=== PATIENT | female | born 2000 | race Caucasian/White ===

== ENCOUNTER → 2019-12-14 | Outpatient (CLI) | payer BC ==
[~2019-12-14] MED LIST: AMOX50SU PO; CODACEE120 PO; ESCI10 PO; OFLO.3OTSO AU; QUET25 PO; SERT50 PO; TYLENOL
[2019-12-14 14:03] LABS: BASOPHILS ABSOLUTE AUTO 0.05 K/mm3 (0.00-0.23); BASOPHILS PERCENT AUTO 1 % (0-2); EOSINOPHILS ABSOLUTE AUTO 0.04 K/mm3 (0.00-0.68); EOSINOPHILS PERCENT AUTO 1 % (0-6); Hematocrit 38.3 % (33.0-51.0); Hemoglobin 12.6 g/dL (11.5-16.0); IMMATURE GRAN ABSOLUTE AUTO 0.01 K/mm3 (0.00-0.10); IMMATURE GRAN PERCENT AUTO 0 % (0-1); LYMPHOCYTES ABSOLUTE AUTO 2.18 K/mm3 (0.84-5.20); LYMPHOCYTES PERCENT AUTO 27 % (21-46); MONOCYTES ABSOLUTE AUTO 0.48 K/mm3 (0.16-1.47); MONOCYTES PERCENT AUTO 6 % (4-13); Mean Corpuscular HGB 28.2 pg (26.0-34.0); Mean Corpuscular HGB Conc 32.9 g/dL (31.5-36.5); Mean Corpuscular Volume 86 fL (80-100); Mean Platelet Volume 11.1 fL (9.1-12.4); NEUTROPHILS PERCENT AUTO 66 % (41-73); Platelet Count 303 K/mm3 (150-400); RDW Coefficient Variation 13.2 % (11.7-14.2); RDW Standard Deviation 40.6 fL (35.1-46.3); Red Blood Cell Count 4.47 M/mm3 (3.80-5.20); White Blood Cell Count 8.06 K/mm3 (4.00-11.30)
[2019-12-14 14:23] LABS: Alanine Aminotransfer (ALT/SGP 18 U/L (12-78); Albumin, Blood 3.8 g/dL (3.4-5.0); Alk Phos 86 U/L (50-136); Anion Gap 5 mmol/L (6-16); Aspartate Aminotrans (AST/SGOT 17 U/L (12-37); Bilirubin, Total 0.7 mg/dL (0.1-1.0); Blood Urea Nitrogen 11 mg/dL (8-24); CO2, Blood 26 mmol/L (21-32); Calcium, Blood 8.9 mg/dL (8.5-10.1); Chloride, Blood 108 mmol/L (98-108); Creatinine, Blood 0.85 mg/dL (0.40-1.00); Globulin, Blood 3.9 g/dL (2.2-4.0); Glomerular Filtration Rate >60 (60-); Glucose, Blood 93 mg/dL (70-99); Potassium, Blood 3.9 mmol/L (3.5-5.5); Sodium, Blood 139 mmol/L (136-145); Total Protein, Blood 7.7 g/dL (6.4-8.2)
== END | disposition home or self-care (01) ==
LOC: LAB SHORT 13:52 → LAB 13:52
PROVIDERS: Physician Assistant
DX: R10.9 Unspecified abdominal pain (principal)
CPT/HCPCS: 80053; 83690; 85025

== ENCOUNTER 2019-12-21 11:42 | Emergency (ER) | payer BC ==
[~2019-12-21] VITALS: Ht 152.4 cm; Wt 68.3 kg
[2019-12-21] MEDS ORDERED: ZOFRAN4 MG PO (12:23)
[2019-12-21 13:30] LABS: Source, Urine Clean Catch
[2019-12-21 13:37] LABS: BASOPHILS ABSOLUTE AUTO 0.03 K/mm3 (0.00-0.23); BASOPHILS PERCENT AUTO 0 % (0-2); EOSINOPHILS ABSOLUTE AUTO 0.03 K/mm3 (0.00-0.68); EOSINOPHILS PERCENT AUTO 0 % (0-6); Hematocrit 40.5 % (33.0-51.0); Hemoglobin 13.3 g/dL (11.5-16.0); IMMATURE GRAN ABSOLUTE AUTO 0.02 K/mm3 (0.00-0.10); IMMATURE GRAN PERCENT AUTO 0 % (0-1); LYMPHOCYTES ABSOLUTE AUTO 2.12 K/mm3 (0.84-5.20); LYMPHOCYTES PERCENT AUTO 26 % (21-46); MONOCYTES PERCENT AUTO 5 % (4-13); Mean Corpuscular HGB 27.7 pg (26.0-34.0); Mean Corpuscular HGB Conc 32.8 g/dL (31.5-36.5); Mean Corpuscular Volume 84 fL (80-100); Mean Platelet Volume 11.3 fL (9.1-12.4); NEUTROPHILS ABSOLUTE AUTO 5.55 K/mm3 (1.96-9.15); NEUTROPHILS PERCENT AUTO 68 % (41-73); Platelet Count 280 K/mm3 (150-400); RDW Coefficient Variation 13.2 % (11.7-14.2); RDW Standard Deviation 40.9 fL (35.1-46.3); White Blood Cell Count 8.15 K/mm3 (4.00-11.30)
[2019-12-21 13:40] LABS: Bilirubin, Urine Neg (Neg); Blood, Urine 2+ (Neg); Glucose Qualitative, Urine Neg (Neg); Ketones, Urine 2+ (Neg); Leukocyte Esterase, Urine 2+ (Neg); Nitrite, Urine Neg (Neg); Protein, Urine 1+ (Neg); Urobilinogen, Urine NORM (Normal)
[2019-12-21 13:45] LABS: Appearance, Urine Cloudy (Clear); Color, Urine Yellow (P-Yellow)
[2019-12-21 13:47] LABS: Bacteria Many /hpf; Red Blood Cells, Urine 25-50 /hpf (0-2); Squamous Epithelial Cells Many /hpf (Few); White Blood Cells, Urine 25-50 /hpf (0-5)
[2019-12-21 13:56] LABS: Alanine Aminotransfer (ALT/SGP 20 U/L (12-78); Albumin, Blood 3.9 g/dL (3.4-5.0); Albumin/Globulin Ratio 0.9 (0.8-1.8); Alk Phos 83 U/L (50-136); Anion Gap 9 mmol/L (6-16); Aspartate Aminotrans (AST/SGOT 20 U/L (12-37); Bilirubin, Total 0.8 mg/dL (0.1-1.0); Blood Urea Nitrogen 10 mg/dL (8-24); CO2, Blood 22 mmol/L (21-32); Calcium, Blood 9.3 mg/dL (8.5-10.1); Chloride, Blood 106 mmol/L (98-108); Creatinine, Blood 0.91 mg/dL (0.40-1.00); Globulin, Blood 4.2 g/dL (2.2-4.0); Glomerular Filtration Rate >60 (60-); Glucose, Blood 82 mg/dL (70-99); Potassium, Blood 3.8 mmol/L (3.5-5.5); Sodium, Blood 137 mmol/L (136-145); Total Protein, Blood 8.1 g/dL (6.4-8.2)
== END 2019-12-21 14:52 | disposition home or self-care (01) ==
LOC: ER 11:42
PROVIDERS: Emergency Medicine
DX: J40 Bronchitis, not specified as acute or chronic (principal); R10.9 Unspecified abdominal pain; N39.0 Urinary tract infection, site not specified; Z91.030 Bee allergy status; Z79.899 Other long term (current) drug therapy
CPT/HCPCS: 36415; 71045; 74176; 80053; 81001; 81025; 83690; 85025; 85730; 87086; 96360; 99284-25; J7030

== ENCOUNTER → 2020-07-18 | Outpatient (CLI) | payer BC ==
[~2020-07-18] MED LIST changes: +ZOFRAN4 MG PO
[2020-07-19 10:26] LABS: Candida species (DNA Probe) Positive (NEGATIVE); G. vaginalis (DNA Probe) Negative (NEGATIVE); T. vaginalis (DNA Probe) Negative (NEGATIVE)
[2020-08-07 13:12] LABS: CHLAMYDIA TRACHOMATIS, NAA Negative (Negative)
== END | disposition home or self-care (01) ==
LOC: LAB 15:47 → LAB SHORT 15:47 → OLS 15:47
PROVIDERS: Advanced Practice Midwife
DX: Z01.419 Encounter for gynecological examination (general) (routine) without abnormal findings (principal); Z11.3 Encounter for screening for infections with a predominantly sexual mode of transmission; N76.0 Acute vaginitis
CPT/HCPCS: 87480; 87491; 87510; 87591; 87624; 87625; 87660; G0123

== ENCOUNTER → 2020-08-15 | Outpatient (CLI) | payer BC ==
[2020-08-16 10:00] LABS: Candida species (DNA Probe) Negative (NEGATIVE); G. vaginalis (DNA Probe) Positive (NEGATIVE); T. vaginalis (DNA Probe) Negative (NEGATIVE)
== END | disposition home or self-care (01) ==
LOC: LAB 10:10
PROVIDERS: Advanced Practice Midwife
DX: R10.2 Pelvic and perineal pain (principal)
CPT/HCPCS: 87480; 87510; 87660

== ENCOUNTER → 2020-12-25 | Outpatient (CLI) | payer BC ==
[2020-12-26 11:48] LABS: Candida species (DNA Probe) Positive (NEGATIVE); G. vaginalis (DNA Probe) Negative (NEGATIVE); T. vaginalis (DNA Probe) Negative (NEGATIVE)
== END ==
LOC: LAB SHORT 10:26
PROVIDERS: Family Medicine
DX: N89.8 Other specified noninflammatory disorders of vagina (principal)
CPT/HCPCS: 87480; 87510; 87660

== ENCOUNTER → 2021-07-02 | Outpatient (CLI) | payer BC | LOC: LAB 19:22 → LAB SHORT 19:22 | DX: R30.0 Dysuria (principal); R10.9 Unspecified abdominal pain | CPT/HCPCS: 87077; 87086; 87186 ==

== ENCOUNTER 2021-07-12 17:30 | Emergency (ER) | payer BC ==
[~2021-07-12] VITALS: Ht 149.9 cm; Wt 83.9 kg
== END 2021-07-12 20:37 | disposition home or self-care (01) ==
LOC: ER 17:30
DX: G43.909 Migraine, unspecified, not intractable, without status migrainosus (principal); Z88.6 Allergy status to analgesic agent; Z88.8 Allergy status to other drugs, medicaments and biological substances; Z91.030 Bee allergy status; Z79.899 Other long term (current) drug therapy
CPT/HCPCS: 96374; 96375; 99283-25; J0780; J1200; J1885; J7030

== ENCOUNTER → 2021-07-18 | Outpatient (CLI) | payer BC ==
[2021-07-19 10:29] LABS: Candida species (DNA Probe) Positive (NEGATIVE); G. vaginalis (DNA Probe) Positive (NEGATIVE); T. vaginalis (DNA Probe) Negative (NEGATIVE)
== END | disposition home or self-care (01) ==
LOC: LAB SHORT 15:23 → LAB 15:23
PROVIDERS: Advanced Practice Midwife
DX: Z01.419 Encounter for gynecological examination (general) (routine) without abnormal findings (principal); R20.8 Other disturbances of skin sensation
CPT/HCPCS: 87480; 87510; 87660; G0123

== ENCOUNTER 2022-01-26 11:36 | Emergency (ER) | payer OTHER, BC ==
[~2022-01-26] VITALS: Ht 152.4 cm; Wt 83.5 kg
[2022-01-26] MEDS ORDERED: Tessalon Perle100 MG PO (13:53)
[2022-01-26] MEDS ORDERED: DEXT30SU PO (13:53)
[2022-01-26] MEDS ORDERED: ZYRTEC10 M2 PO (13:53)
== END 2022-01-26 14:15 | disposition home or self-care (01) ==
LOC: ER 11:36
DX: R05.9 Cough, unspecified (principal); Z79.899 Other long term (current) drug therapy; Z88.8 Allergy status to other drugs, medicaments and biological substances; Z91.030 Bee allergy status
CPT/HCPCS: 71046

== ENCOUNTER → 2022-03-18 | Outpatient (CLI) | payer BC ==
[~2022-03-18] MED LIST changes: +DEXT30SU PO; +Tessalon Perle100 MG PO; +ZYRTEC10 M2 PO
== END ==
LOC: LAB SHORT 18:54 → LAB 18:54
DX: R30.0 Dysuria (principal); R31.9 Hematuria, unspecified
CPT/HCPCS: 87086

== ENCOUNTER 2023-05-12 13:12 | Emergency (ER) | payer BC, OTHER ==
[~2023-05-12] VITALS: Ht 154.9 cm; Wt 89.8 kg
[2023-05-12 14:02] LABS: Source, Urine Voided
[2023-05-12 14:06] LABS: BASOPHILS ABSOLUTE AUTO 0.09 K/mm3 (0.00-0.23); BASOPHILS PERCENT AUTO 1 % (0-2); EOSINOPHILS ABSOLUTE AUTO 0.27 K/mm3 (0.00-0.68); EOSINOPHILS PERCENT AUTO 2 % (0-6); Hemoglobin 12.8 g/dL (11.5-16.0); IMMATURE GRAN ABSOLUTE AUTO 0.06 K/mm3 (0.00-0.10); IMMATURE GRAN PERCENT AUTO 0 % (0-1); LYMPHOCYTES ABSOLUTE AUTO 3.66 K/mm3 (0.84-5.20); LYMPHOCYTES PERCENT AUTO 23 % (21-46); MONOCYTES ABSOLUTE AUTO 0.57 K/mm3 (0.16-1.47); MONOCYTES PERCENT AUTO 4 % (4-13); Mean Corpuscular Volume 81 fL (80-100); Mean Platelet Volume 10.6 fL (9.1-12.4); NEUTROPHILS ABSOLUTE AUTO 11.04 K/mm3 (1.96-9.15); NEUTROPHILS PERCENT AUTO 70 % (41-73); Platelet Count 393 K/mm3 (150-400); RDW Coefficient Variation 14.8 % (11.7-14.2); RDW Standard Deviation 43.4 fL (35.1-46.3); Red Blood Cell Count 4.93 M/mm3 (3.80-5.20); White Blood Cell Count 15.69 K/mm3 (4.00-11.30)
[2023-05-12 14:18] LABS: Appearance, Urine Cloudy (Clear); Bilirubin, Urine Neg (Neg); Blood, Urine 5+ (Neg); Color, Urine Yellow (P-Yellow); Glucose Qualitative, Urine Neg (Neg); Ketones, Urine Neg (Neg); Leukocyte Esterase, Urine 3+ (Neg); Nitrite, Urine Neg (Neg); Protein, Urine 3+ (Neg); Specific Gravity, Urine 1.025 (1.003-1.022); Urobilinogen, Urine NORM (Normal)
[2023-05-12 14:19] LABS: Albumin, Blood 4.1 g/dL (3.4-5.0); Albumin/Globulin Ratio 1.1 (0.8-1.8); Bilirubin, Total 0.4 mg/dL (0.1-1.0); Bun/Creatinine Ratio 10.5 (12.0-20.0); Calcium, Blood 9.4 mg/dL (8.5-10.1); Creatinine, Blood 0.76 mg/dL (0.40-1.00); Globulin, Blood 3.8 g/dL (2.2-4.0); Potassium, Blood 3.9 mmol/L (3.5-5.5); Total Protein, Blood 7.9 g/dL (6.4-8.2)
[2023-05-12 15:14] LABS: Bacteria Many /hpf; Red Blood Cells, Urine TNTC /hpf (0-2); Squamous Epithelial Cells Few /hpf (Few); White Blood Cells, Urine TNTC /hpf (0-5)
[2023-05-12 17:15] VITALS: BP 110/62
[2023-05-12] MEDS ORDERED: CEPH500 PO (17:47)
[2023-05-12] MEDS ORDERED: BACTRIM DS TAB1 EAC1 PO (17:47)
[2023-05-12] MEDS ORDERED: Pyridium200 MG PO (17:47)
== END 2023-05-12 17:52 | disposition home or self-care (01) ==
LOC: ER 13:12
PROVIDERS: Student in an Organized Health Care Education/Training Program
DX: N39.0 Urinary tract infection, site not specified (principal); L03.316 Cellulitis of umbilicus; Z91.018 Allergy to other foods; Z91.030 Bee allergy status; Z88.8 Allergy status to other drugs, medicaments and biological substances
CPT/HCPCS: 74176; 80053; 81001; 81025; 85025; 87077; 87086; 87186; 96361; 96374; 99284-25; A9270; J1885; J7030

== ENCOUNTER 2024-01-16 17:47 | Observation (INO) | payer BC, OTHER ==
[~2024-01-16] VITALS: Ht 152.4 cm; Wt 94.9 kg
[2024-01-18 07:43] VITALS: BP 83/54
== END 2024-01-18 10:30 | disposition home or self-care (01) ==
LOC: ER 17:47 → SURS 17:48 → ER 17:48 → SURS 17:48 → ER 01-17 00:58 → SURS 01-17 01:29
PROVIDERS: ADMIT Surgery
PROC: 8E0W4CZ Robotic Assisted Procedure of Trunk Region, Percutaneous Endoscopic Approach (ICD-10-PCS; principal; 2024-01-17)
PROC: 0FT44ZZ Resection of Gallbladder, Percutaneous Endoscopic Approach (ICD-10-PCS; principal; 2024-01-17)
DX: K81.0 Acute cholecystitis (principal); K81.1 Chronic cholecystitis; Z88.8 Allergy status to other drugs, medicaments and biological substances

== ENCOUNTER → 2024-02-24 | Outpatient (CLI) | payer BC, OTHER ==
[~2024-02-24] MED LIST changes: +BACTRIM DS TAB1 EAC1 PO; +CEPH500 PO; +OXYC5 PO; +Pyridium200 MG PO
[2024-02-24 17:18] LABS: Source, Urine Clean Catch
[2024-02-24 20:16] LABS: Appearance, Urine Turbid (Clear); Bilirubin, Urine Neg (Neg); Blood, Urine 2+ (Neg); Color, Urine Yellow (P-Yellow); Glucose Qualitative, Urine Neg (Neg); Ketones, Urine 1+ (Neg); Leukocyte Esterase, Urine 3+ (Neg); Nitrite, Urine Neg (Neg); Protein, Urine 1+ (Neg); Urobilinogen, Urine NORM (Normal)
[2024-02-24 20:33] LABS: Amorphous Heavy (0-Heavy); Calcium Oxalate Crystals Mod /hpf
[2024-02-24 20:34] LABS: Bacteria Mod /hpf; Red Blood Cells, Urine 0-2 /hpf (0-2); Squamous Epithelial Cells Few /hpf (Few)
== END ==
LOC: LAB 17:16 → LAB SHORT 17:16
PROVIDERS: Advanced Practice Midwife
DX: R31.9 Hematuria, unspecified (principal)
CPT/HCPCS: 81001; 87086

== ENCOUNTER → 2024-03-04 | Outpatient (CLI) | payer BC, OTHER ==
[2024-03-04 15:14] LABS: Bacterial Vaginosis PCR Positive (NEGATIVE); Candida Group, PCR NOT DETECTED (NOT DETECT); Candida glabrata-krusei, PCR DETECTED (NOT DETECT)
== END | disposition home or self-care (01) ==
LOC: LAB 12:59 → LAB SHORT 12:59
PROVIDERS: Advanced Practice Midwife
DX: N76.0 Acute vaginitis (principal)
CPT/HCPCS: 87481; 87661; 87801

== ENCOUNTER → 2024-05-02 | Outpatient (CLI) | payer BC, OTHER ==
[2024-05-02 12:35] LABS: Source, Urine Clean Catch
[2024-05-02 15:42] LABS: Appearance, Urine Cloudy (Clear); Bilirubin, Urine Neg (Neg); Blood, Urine 2+ (Neg); Color, Urine Yellow (P-Yellow); Glucose Qualitative, Urine Neg (Neg); Ketones, Urine 1+ (Neg); Leukocyte Esterase, Urine 3+ (Neg); Nitrite, Urine Neg (Neg); Protein, Urine 2+ (Neg); Urobilinogen, Urine 1+ (Normal)
[2024-05-02 15:54] LABS: Amorphous Heavy (0-Heavy)
[2024-05-02 15:57] LABS: Bacteria Many /hpf; Squamous Epithelial Cells Mod /hpf (Few); Transitional Epithelial Cells Rare /hpf (0-Rare)
[2024-05-02 16:37] LABS: Candida Group, PCR NOT DETECTED (NOT DETECT)
[2024-05-02 17:45] LABS: Bacterial Vaginosis PCR Positive (NEGATIVE); Candida glabrata-krusei, PCR DETECTED (NOT DETECT)
== END | disposition home or self-care (01) ==
LOC: LAB 12:32 → LAB SHORT 12:32
PROVIDERS: Advanced Practice Midwife
DX: N39.3 Stress incontinence (female) (male) (principal); N76.0 Acute vaginitis
CPT/HCPCS: 81001; 87086; 87481; 87661; 87801

== ENCOUNTER → 2024-06-07 | Outpatient (CLI) | payer BC, OTHER ==
[2024-06-07 20:39] LABS: Bacterial Vaginosis PCR Negative (NEGATIVE); Candida glabrata-krusei, PCR NOT DETECTED (NOT DETECT)
[2024-06-07 20:55] LABS: Candida Group, PCR DETECTED (NOT DETECT)
== END | disposition home or self-care (01) ==
LOC: LAB SHORT 17:23 → LAB 17:23
PROVIDERS: Advanced Practice Midwife
DX: R10.2 Pelvic and perineal pain (principal)
CPT/HCPCS: 87481; 87661; 87801

== ENCOUNTER → 2024-07-05 | Outpatient (CLI) | payer BC, OTHER ==
[2024-07-05 16:53] LABS: Source, Urine Clean Catch
[2024-07-05 18:17] LABS: Appearance, Urine Cloudy (Clear); Bilirubin, Urine Neg (Neg); Blood, Urine Neg (Neg); Color, Urine Yellow (P-Yellow); Glucose Qualitative, Urine Neg (Neg); Ketones, Urine Neg (Neg); Leukocyte Esterase, Urine 2+ (Neg); Nitrite, Urine Neg (Neg); Protein, Urine 1+ (Neg); Urobilinogen, Urine NORM (Normal)
[2024-07-05 18:31] LABS: Bacteria Many /hpf; Red Blood Cells, Urine Not Seen /hpf (0-2); Squamous Epithelial Cells Many /hpf (Few)
== END | disposition home or self-care (01) ==
LOC: LAB SHORT 16:50 → LAB 16:50
PROVIDERS: Advanced Practice Midwife
DX: Z09 Encounter for follow-up examination after completed treatment for conditions other than malignant neoplasm (principal); Z87.440 Personal history of urinary (tract) infections
CPT/HCPCS: 81001; 87086

== ENCOUNTER → 2024-07-12 | Outpatient (CLI) | payer BC, OTHER | LOC: LAB SHORT 16:53 → LAB 16:53 | DX: O09.892 Supervision of other high risk pregnancies, second trimester (principal) | CPT/HCPCS: 87081; 87150 ==

== ENCOUNTER 2024-08-09 12:07 | Inpatient (IN) | payer BC, OTHER ==
[~2024-08-09] VITALS: Ht 149.9 cm; Wt 87.7 kg
[2024-08-09] VITALS (26 sets, daily range): BP systolic 98–149; BP diastolic 53–103
[2024-08-09] MEDS ORDERED: Calcium Carbonate 500 MG Tab Chew PO PRN (13:10)
[2024-08-09] MEDS ORDERED: Ondansetron HCl 2 MG / ML 2ML Vial IV PRN ×2 (13:10→13:30)
[2024-08-09] MEDS ORDERED: FentaNYL Citrate 50 MCG/ML 2 ML Injection IV PRN (13:10)
[2024-08-09] MEDS ORDERED: Lactated Ringer's 1,000 ML IV PRN (13:30)
[2024-08-09] MEDS ORDERED: Lactated Ringer's 1,000 ML IV SCH ×3 (13:30→14:15)
[2024-08-09] MEDS ORDERED: Tranexamic Acid 1,000 MG in NS 100 ML IV SCH (13:30)
[2024-08-09] MEDS ORDERED: Acetaminophen 500 MG Tab PO PRN (13:30)
[2024-08-09] MEDS ORDERED: Oxytocin 10 Unit / ML Vial IM PRN (13:30)
[2024-08-09] MEDS ORDERED: Methylergonovine Maleate 0.2MG / ML 1ML Amp IM PRN (13:30)
[2024-08-09] MEDS ORDERED: OXYTOCIN/RINGER'S LACTATE 500 ML IV PRN (13:30)
[2024-08-09] MEDS ORDERED: Misoprostol 200 MCG Tab PR PRN (13:30)
[2024-08-09] MEDS ORDERED: Misoprostol 200 MCG Tab BC PRN (13:30)
[2024-08-09] MEDS ORDERED: OXYTOCIN/RINGER'S LACTATE 500 ML IV SCH (13:30)
[2024-08-09] MEDS ORDERED: Carboprost Tromethamine 250 MCG/ML 1ML Amp IM PRN (13:30)
[2024-08-09] MEDS ORDERED: Calcium Carbonate 500 MG Tab Chew PO SCH (13:30)
[2024-08-09 13:42] LABS: BASOPHILS ABSOLUTE AUTO 0.04 K/mm3 (0.00-0.23); BASOPHILS PERCENT AUTO 0 % (0-2); EOSINOPHILS ABSOLUTE AUTO 0.08 K/mm3 (0.00-0.68); EOSINOPHILS PERCENT AUTO 1 % (0-6); Hematocrit 33.6 % (33.0-51.0); Hemoglobin 10.5 g/dL (11.5-16.0); IMMATURE GRAN ABSOLUTE AUTO 0.04 K/mm3 (0.00-0.10); IMMATURE GRAN PERCENT AUTO 0 % (0-1); LYMPHOCYTES ABSOLUTE AUTO 2.35 K/mm3 (0.84-5.20); LYMPHOCYTES PERCENT AUTO 25 % (21-46); MONOCYTES ABSOLUTE AUTO 0.52 K/mm3 (0.16-1.47); MONOCYTES PERCENT AUTO 6 % (4-13); Mean Corpuscular HGB 23.9 pg (26.0-34.0); Mean Corpuscular HGB Conc 31.3 g/dL (31.5-36.5); Mean Corpuscular Volume 76 fL (80-100); Mean Platelet Volume 11.9 fL (9.1-12.4); NEUTROPHILS ABSOLUTE AUTO 6.49 K/mm3 (1.96-9.15); NEUTROPHILS PERCENT AUTO 68 % (41-73); Platelet Count 269 K/mm3 (150-400); RDW Standard Deviation 48.8 fL (35.1-46.3); White Blood Cell Count 9.52 K/mm3 (4.00-11.30)
[2024-08-09] MEDS ORDERED: ePHEDrine Sulfate 50 MG/ML 1ML Injection XX PRN (14:15)
[2024-08-09] MEDS ORDERED: FentaNYL 2mcg/ml-Bup 0.1% Epd 250 ML EPI PRN (14:15)
[2024-08-10] VITALS (52 sets, daily range): BP systolic 75–126; BP diastolic 47–73
[2024-08-10 01:09] LABS: Bun/Creatinine Ratio 12.8 (12.0-20.0); Calcium, Blood 9.1 mg/dL (8.5-10.1); Creatinine, Blood 0.86 mg/dL (0.40-1.00)
[2024-08-10] MEDS ORDERED: Morphine Sulfate/PF 1 MG/ML 10MLVIAL ONE (01:28)
[2024-08-10] MEDS ORDERED: Azithromycin 500 MG in NS 250 ML IV SCH (01:35)
[2024-08-10] MEDS ORDERED: Citric Acid/Sodium Citrate 30 ML BTL PO PRN (01:35)
[2024-08-10] MEDS ORDERED: CeFAZolin Sodium 2,000 MG in NS 100 ML IV SCH (01:35)
[2024-08-10] MEDS ORDERED: Metoclopramide HCl 5MG / ML 2ML Vial IV PRN (01:40)
[2024-08-10] MEDS ORDERED: Tranexamic Acid 100 ML IV ONE (01:57)
[2024-08-10] MEDS ORDERED: Oxytocin 10 Unit / ML Vial ONE (02:32)
[2024-08-10] MEDS ORDERED: Phenylephrine HCl 100 MCG/ML-NS 10MLSYR (1MG/10ML) ONE (02:32)
[2024-08-10 02:59] LABS: PCO2 Cord - Arterial 63.2 mmHg (40-50); PO2 Cord - Arterial < 14.0 mmHg (16-20); pH Cord - Arterial 7.18 (7.28-7.35)
[2024-08-10 03:01] LABS: PCO2 Cord - Venous 45.5 mmHg (40-50); PO2 Cord - Venous < 14.0 mmHg (28-32)
[2024-08-10] MEDS ORDERED: Ondansetron HCl 2 MG / ML 2ML Vial ONE (03:23)
[2024-08-10] MEDS ORDERED: Ketorolac Tromethamine 30mg Vial ONE (03:31)
[2024-08-10] MEDS ORDERED: NS 500 ML IV SCH (04:05)
[2024-08-10] MEDS ORDERED: OxyCODONE HCL 5 MG TAB PO PRN ×2 (04:20→04:25)
[2024-08-10] MEDS ORDERED: OXYTOCIN/RINGER'S LACTATE 500 ML IV SCH ×2 (04:20→04:25)
[2024-08-10] MEDS ORDERED: Simethicone 80 MG Chew PO PRN (04:20)
[2024-08-10] MEDS ORDERED: Rho(D) Immune Globulin 300 MCG / SYR IM ONE (04:20)
[2024-08-10] MEDS ORDERED: Ondansetron HCl 2 MG / ML 2ML Vial IV PRN (04:25)
[2024-08-10] MEDS ORDERED: Misoprostol 200 MCG Tab PR PRN (04:25)
[2024-08-10] MEDS ORDERED: Lanolin Cream TOP PRN (04:25)
[2024-08-10] MEDS ORDERED: Promethazine HCl 25 MG Tab PO PRN (04:25)
[2024-08-10] MEDS ORDERED: Methylergonovine Maleate 0.2MG / ML 1ML Amp IM PRN (04:30)
[2024-08-10] MEDS ORDERED: DiphenhydrAMINE HCL 25 MG Cap PO PRN (04:30)
[2024-08-10] MEDS ORDERED: HYDROmorphone HCl/Pf 1MG SYR IV PRN (04:30)
[2024-08-10 04:45] LABS: Hematocrit 25.4 % (33.0-51.0); Mean Corpuscular HGB 23.8 pg (26.0-34.0); Mean Corpuscular HGB Conc 31.5 g/dL (31.5-36.5); Mean Corpuscular Volume 76 fL (80-100); Mean Platelet Volume 12.3 fL (9.1-12.4); Platelet Count 263 K/mm3 (150-400); RDW Coefficient Variation 17.8 % (11.7-14.2); RDW Standard Deviation 48.5 fL (35.1-46.3); Red Blood Cell Count 3.36 M/mm3 (3.80-5.20); White Blood Cell Count 17.98 K/mm3 (4.00-11.30)
[2024-08-10] MEDS ORDERED: Tranexamic Acid 100 ML IV PRN (04:55)
[2024-08-10] MEDS ORDERED: Ketorolac Tromethamine 30mg Vial IV SCH (05:00)
[2024-08-10 05:01] LABS: International Normalized Ratio 0.91; Prothrombin Time Results 9.8 Sec (9.7-11.5)
--- NOTE | 2024-08-10 07:20 | NUR ---
pt has 20cc in her soria right now, has til 0800 til it gets emptied, pt is pale, reports feels ok, no mcintosh, nausea,vomiting, or visual disturbanes, reports her pain is good, she is tired, she is very pale. biox 95-97%, bp is a little low, will coninue to monitor with q4hr vs
--- NOTE | 2024-08-10 08:30 | NUR ---
BP CONTINUES TO RUN LOW, PT DENIES ZAMORA, N/V, SEEING SPOTS, DENIES DIZZY OR LIGHTHEADED, DOES REPORT SWEATING OFF AND ON
[2024-08-10] MEDS ORDERED: Polyethylene Glycol 3350 17 gm PO SCH (09:00)
--- NOTE | 2024-08-10 09:06 | NUR ---
PAGE TO DR BARR TO CALL ABOUT PT VITAL SIGNS AND URINE OUTPUT
[2024-08-10 10:03] LABS: Hematocrit 27.3 % (33.0-51.0); Hemoglobin 8.7 g/dL (11.5-16.0); Mean Corpuscular HGB 24.6 pg (26.0-34.0); Mean Corpuscular HGB Conc 31.9 g/dL (31.5-36.5); Mean Corpuscular Volume 77 fL (80-100); Mean Platelet Volume 11.7 fL (9.1-12.4); Platelet Count 220 K/mm3 (150-400); RDW Coefficient Variation 17.2 % (11.7-14.2); RDW Standard Deviation 47.8 fL (35.1-46.3); Red Blood Cell Count 3.54 M/mm3 (3.80-5.20); White Blood Cell Count 17.37 K/mm3 (4.00-11.30)
[2024-08-10 10:18] LABS: International Normalized Ratio 0.92; Prothrombin Time Results 9.9 Sec (9.7-11.5)
[2024-08-10 10:23] LABS: Bun/Creatinine Ratio 15.2 (12.0-20.0); Calcium, Blood 8.4 mg/dL (8.5-10.1); Creatinine, Blood 0.86 mg/dL (0.40-1.00); Potassium, Blood 3.9 mmol/L (3.5-5.5)
--- NOTE | 2024-08-10 10:56 | NUR ---
PAGE TO DR BARR REQUARDING URINE OUPT AND BP, DR BARR ON HER WAY DOWN TO MAKE ROUNDS
--- NOTE | 2024-08-10 11:18 | NUR ---
DR BARR DID A QUICK CONSULT, WILL BE BACK, HAS TO DO A DELIVERY THEN WILL COME BACK WITH FURTHER ORDERS, CURRENT PLAN TO GIVE THE REST OF THE LR THAT IS IN THE PT ROOM
--- NOTE | 2024-08-10 11:24 | NUR ---
FLUID BOLUS STARTED WITH LR AT 250CC/HR, ABOUT 600CC LEFT IN BAG. THERE CURRENTLY IS LESS THAN 1CC IN THE PT CHAMPION
--- NOTE | 2024-08-10 12:18 | NUR ---
pt has been offered pain meds multiple times today and has declined needing them. will continue to offer her meds
--- NOTE | 2024-08-10 12:39 | NUR ---
pt urine output from 0500 this AM averages 25.3cc/hr, aware
--- NOTE | 2024-08-10 13:15 | NUR ---
dr colby at bedside for the 5cc of urine in the last 55 minutes, verbal order to increase LR to 500cc/hr when infused then run a bag of normal saline in at 500cc/hr
[2024-08-10] MEDS ORDERED: NS 1,000 ML IV SCH ×2 (13:20→18:10)
--- NOTE | 2024-08-10 15:30 | NUR ---
pt currently sleeping, had 85cc out of urine in 1 hr and 15 minutes, still lilly colored,
--- NOTE | 2024-08-10 15:41 | NUR ---
pt sl, iv fluids complete, will continue to monitor urine output
--- NOTE | 2024-08-10 17:26 | NUR ---
dr colby updated on output
--- NOTE | 2024-08-10 18:01 | NUR ---
new orders from dr colby, infuse 2 more bags of normal saline to increase urine output
--- NOTE | 2024-08-10 18:26 | NUR ---
FAMILY GOING TO GET PT SOME TACOS, SHE HASNT EATEN ANYTHING TODAY, JUST DRANK SOME MILK A COUPLE TIMES AND LITTLE WATER
--- NOTE | 2024-08-10 18:54 | NUR ---
EATING DINNER, FAMILY BROUGHT TACOS, PT IS SMILING AND LAUGHING EATING TACOS
[2024-08-11] VITALS (12 sets, daily range): BP systolic 85–129; BP diastolic 51–75
[2024-08-11] MEDS ORDERED: Ibuprofen 400 MG Tab PO SCH
[2024-08-11 05:47] LABS: BASOPHILS ABSOLUTE AUTO 0.03 K/mm3 (0.00-0.23); BASOPHILS PERCENT AUTO 0 % (0-2); EOSINOPHILS ABSOLUTE AUTO 0.05 K/mm3 (0.00-0.68); EOSINOPHILS PERCENT AUTO 0 % (0-6); Hemoglobin 7.2 g/dL (11.5-16.0); IMMATURE GRAN ABSOLUTE AUTO 0.11 K/mm3 (0.00-0.10); IMMATURE GRAN PERCENT AUTO 1 % (0-1); LYMPHOCYTES ABSOLUTE AUTO 2.13 K/mm3 (0.84-5.20); LYMPHOCYTES PERCENT AUTO 15 % (21-46); MONOCYTES ABSOLUTE AUTO 0.71 K/mm3 (0.16-1.47); MONOCYTES PERCENT AUTO 5 % (4-13); Mean Corpuscular HGB 24.7 pg (26.0-34.0); Mean Corpuscular HGB Conc 31.3 g/dL (31.5-36.5); Mean Corpuscular Volume 79 fL (80-100); Mean Platelet Volume 11.8 fL (9.1-12.4); NEUTROPHILS ABSOLUTE AUTO 11.21 K/mm3 (1.96-9.15); NEUTROPHILS PERCENT AUTO 79 % (41-73); Platelet Count 180 K/mm3 (150-400); RDW Coefficient Variation 17.5 % (11.7-14.2); RDW Standard Deviation 49.3 fL (35.1-46.3); Red Blood Cell Count 2.91 M/mm3 (3.80-5.20); White Blood Cell Count 14.24 K/mm3 (4.00-11.30)
[2024-08-11 05:54] LABS: Bun/Creatinine Ratio 11.4 (12.0-20.0); Calcium, Blood 8.2 mg/dL (8.5-10.1); Creatinine, Blood 0.79 mg/dL (0.40-1.00); Potassium, Blood 3.9 mmol/L (3.5-5.5)
[2024-08-11] MEDS ORDERED: Sod Ferric Gluc Complx/Sucrose 125 MG in NS 100 ML IV SCH (09:00)
[2024-08-12 00:18] VITALS: BP 119/70
[2024-08-12 04:04] VITALS: BP 109/62
[2024-08-12 09:03] VITALS: BP 114/71
== END 2024-08-12 11:10 | disposition home or self-care (01) | DRG 787 ==
LOC: OBS 12:07 → BC 12:18
PROVIDERS: Obstetrics & Gynecology; ADMIT Advanced Practice Midwife
PROC: 10D00Z1 Extraction of Products of Conception, Low, Open Approach (ICD-10-PCS; 2024-08-10)
PROC: 3E033VJ Introduction of Other Hormone into Peripheral Vein, Percutaneous Approach (ICD-10-PCS; 2024-08-10)
PROC: 00HU33Z Insertion of Infusion Device into Spinal Canal, Percutaneous Approach (ICD-10-PCS; 2024-08-10)
PROC: 3E0R3BZ Introduction of Anesthetic Agent into Spinal Canal, Percutaneous Approach (ICD-10-PCS; 2024-08-10)
PROC: 30233N1 Transfusion of Nonautologous Red Blood Cells into Peripheral Vein, Percutaneous Approach (ICD-10-PCS; principal; 2024-08-10 07:15)
DX: O48.0 Post-term pregnancy (principal); D62 Acute posthemorrhagic anemia; O72.1 Other immediate postpartum hemorrhage; O47.1 False labor at or after 37 completed weeks of gestation; O99.214 Obesity complicating childbirth; Z3A.40 40 weeks gestation of pregnancy; Z37.0 Single live birth; O24.420 Gestational diabetes mellitus in childbirth, diet controlled; O99.344 Other mental disorders complicating childbirth; F31.9 Bipolar disorder, unspecified; O99.513 Diseases of the respiratory system complicating pregnancy, third trimester; J45.909 Unspecified asthma, uncomplicated; O99.02 Anemia complicating childbirth; O76 Abnormality in fetal heart rate and rhythm complicating labor and delivery; Z90.49 Acquired absence of other specified parts of digestive tract; Z90.89 Acquired absence of other organs; Z91.038 Other insect allergy status; Z91.018 Allergy to other foods; Z88.8 Allergy status to other drugs, medicaments and biological substances; Z79.899 Other long term (current) drug therapy; Z72.820 Sleep deprivation
CPT/HCPCS: 36415; 36430; 51702; 59025; 80048; 81003; 82803; 82947; 85025; 85027; 85384; 85610; 85730; 86850; 86900; 86901; 86923; 99214; A9270; J0690; J1885; J2274; J2371; J2405; J2590; J2916; J3010; J7030; J7120; P9016

== ENCOUNTER → 2024-09-20 | Outpatient (CLI) | payer BC, OTHER ==
[2024-09-21 12:54] LABS: Candida glabrata-krusei, PCR NOT DETECTED (NOT DETECT)
[2024-09-21 12:55] LABS: Bacterial Vaginosis PCR Positive (NEGATIVE); Candida Group, PCR DETECTED (NOT DETECT)
[2024-09-23 18:20] LABS: APTIMA MEDIA TYPE Unisex Swab; C. TRACHOMATIS BY TMA Negative (Negative); N. GONORRHOEAE BY TMA Negative (Negative); SPECIMEN SOURCE Cervical
== END ==
LOC: LAB SHORT 16:43 → LAB 16:43
PROVIDERS: Advanced Practice Midwife
DX: Z11.3 Encounter for screening for infections with a predominantly sexual mode of transmission (principal); N76.0 Acute vaginitis
CPT/HCPCS: 81515; 87491; 87591